=== PATIENT | male | born 1940 | race Caucasian/White ===

== ENCOUNTER 2018-10-11 16:43 | Emergency (ER) | payer MEDICARE, BC ==
[~2018-10-11] VITALS: Ht 170.2 cm; Wt 68.0 kg
[~2018-10-11 16:43] MED LIST: AMLO-147 PO; ASPI325T29 PO; CINA30TA4 PO; NEPH PO; NITR0.4T39 SL; OMEP40CA6 PO; SEVE800T7 PO
[2018-10-11 17:42] VITALS: Ht 170.2 cm; Wt 68.0 kg
--- NOTE | 2018-10-11 18:48 | ERD ---
ER Documentation Chief Complaint Chief Complaint abdominal pain HPI The patient is a 78-year-old male, presenting to the ER because of vague and diffuse abdominal pain intermittently for the last 10 days after eating, complains of diarrhea for the last 3 days, denies hematemesis, hematochezia. He also complains of right facial pain for the last couple days, denies fever, chills, neck pain, chest pain. He does not smoke nor drink Past medical history: Chronic kidney disease, hypertension, aortic stenosis, CAD, pancytopenia ROS All systems reviewed and are negative except as per history of present illness. Medications Home Meds Active Scripts Azithromycin* (Zithromax*) 250 Mg Tablet, 250 MG PO .ZPACK DIRECTED, #6 TAB TAKE 500 MG (2 TABS) THE FIRST DAY THEN 250 MG (1 TAB) DAYS 2-5 Prov:MACRINA CONNER MD 10/11/18 Loperamide Hcl* (Imodium*) 2 Mg Capsule, 2 MG PO .AFTER EA LOOSE BM PRN for DIARRHEA, #10 TAB Prov:MACRINA CONNER MD 10/11/18 Pantoprazole* (Protonix*) 40 Mg Tablet., 40 MG PO DAILY, #10 TAB Prov:MACRINA CONNER MD 10/11/18 Reported Medications Sevelamer Carbonate* (Renvela*) 800 Mg Tablet, 3200 GM PO WITH MEALS, TAB 10/11/18 Amlodipine Besylate* (Amlodipine Besylate*) 10 Mg Tablet, 10 MG PO DAILY, #30 TAB PATIENT TAKE- NEEDED 10/11/18 Discontinued Reported Medications Multivit/Ca Carb/B Cmplx/Fa* (Marielle-Tony*) 1 Tab Tab, 1 TAB PO DAILY, TAB 04/11/16 Sevelamer Carbonate* (Renvela*) 800 Mg Tablet, 0.8 GM PO WITH MEALS, TAB 04/11/16 Cinacalcet* (Sensipar*) 30 Mg Tab, 30 MG PO DAILY, TAB 04/11/16 Omeprazole* (Omeprazole*) 40 Mg Capsule.dr, 40 MG PO DAILY, #30 CAP 04/11/16 Amlodipine Besylate* (Amlodipine Besylate*) 10 Mg Tablet, 10 MG PO DAILY, #30 TAB 04/11/16 Discontinued Scripts Nitroglycerin* (Nitrostat*) 0.4 Mg Tab.subl, 1 TAB SL Q5M PRN for CHEST PAIN for 15 Days, #60 Prov:BRIANA VOGEL MD 04/15/16 Aspirin (Aspirin Lite-Coat) 325 Mg Tablet, 325 MG PO DAILY for 90 Days, #90 TAB Prov:BRIANA VOGEL MD 04/15/16 Allergies Allergies: Coded Allergies: Penicillins (Verified Allergy, Unknown, 10/11/18) PMhx/Soc History of Surgery: Yes (AVS 10YRS AGO) Anesthesia Reaction: No Hx Neurological Disorder: No Hx Respiratory Disorders: No Hx Cardiac Disorders: Yes (HIGH BP AND LA X3) Hx Psychiatric Problems: No Hx Miscellaneous Medical Probl: No Hx Alcohol Use: Yes Hx Substance Use: No Hx Tobacco Use: Yes Physical Exam Vitals Vital Signs Date Temp Pulse Resp B/P (MAP) Pulse Ox O2 O2 Flow FiO2 Time Delivery Rate 10/11/18 76 17 117/63 100 Room Air 21:47 (81) 10/11/18 97.8 89 18 129/59 97 17:42 (82) Physical Exam Const: No acute distress. Head: Atraumatic. Eyes: Normal Conjunctiva. ENT: Normal External Ears, Nose and Mouth. Right maxillary sinus tenderness Neck: Full range of motion. No meningismus. Resp: Clear to auscultation bilaterally. Cardio: Regular rate and rhythm. Abd: Soft, non distended, normal bowel sounds, non tender. Skin: No petechiae or rashes. Back: No midline or flank tenderness. Ext: No cyanosis, or edema. Neur: Awake and alert. No focal deficit Psych: Normal Mood and Affect. Result Diagram: 10/11/18190710/11/181907 Results 24 hrs Laboratory Tests Test 10/11/18 19:08 White Blood Count 4.7 10^3/ul Red Blood Count 3.51 10^6/ul Hemoglobin 10.8 g/dl Hematocrit 33.9 % Mean Corpuscular Volume 96.6 fl Mean Corpuscular Hemoglobin 30.8 pg Mean Corpuscular Hemoglobin Concent 31.9 g/dl Red Cell Distribution Width 16.5 % Platelet Count 129 10^3/UL Mean Platelet Volume 10.0 fl Immature Granulocytes % 0.400 % Neutrophils % 76.2 % Lymphocytes % 8.9 % Monocytes % 11.8 % Eosinophils % 2.3 % Basophils % 0.4 % Nucleated Red Blood Cells % 0.0 /100WBC Immature Granulocytes # 0.020 10^3/ul Neutrophils # 3.6 10^3/ul Lymphocytes # 0.4 10^3/ul Monocytes # 0.6 10^3/ul Eosinophils # 0.1 10^3/ul Basophils # 0.0 10^3/ul Nucleated Red Blood Cells # 0.0 10^3/ul Sodium Level 137 mmol/L Potassium Level 4.6 mmol/L Chloride Level 92 mmol/L Carbon Dioxide Level 27 mmol/L Anion Gap 18 Blood Urea Nitrogen 69 mg/dl Creatinine 9.97 mg/dl Est Glomerular Filtrat Rate mL/min mL/min Glucose Level 80 mg/dl Calcium Level 7.9 mg/dl Total Bilirubin 0.0 mg/dl Direct Bilirubin 0.00 mg/dl Indirect Bilirubin 0.0 mg/dl Aspartate Amino Transf (AST/SGOT) 21 IU/L Alanine Aminotransferase (ALT/SGPT) 20 IU/L Alkaline Phosphatase 130 IU/L Total Protein 6.6 g/dl Albumin 3.6 g/dl Globulin 3.00 g/dl Albumin/Globulin Ratio 1.20 Lipase 41 U/L Procedures/MDM MEDICAL MAKING DECISION: The patient is a 78-year-old male, presenting with acute abdominal pain, acute sinusitis, was treated with Protonix 40 mg IV for pain good response, is stable for outpatient follow-up The differential diagnoses considered include but are not limited to cholelithiasis, cholecystitis, choledocholithiasis, cholangitis, pancreatitis, hepatitis, gastritis, peptic ulcer disease, gastric ulcer, appendicitis, cystitis, diverticulitis, partial small bowel obstruction. Departure Diagnosis: Primary Impression: Abdominal pain Additional Impressions: Sinusitis Diarrhea Condition: Good Comments He was discharged with Zithromax, Protonix, Imodium I discussed the findings with the patient. I advised the patient to follow-up with the primary physician in about 2-3 days for re-eval and referral to GI, sooner if needed and return if any concern. Disclaimer: Inadvertent spelling and grammatical errors are likely due to EHR/dictation software use and do not reflect on the overall quality of patient care. Also, please note that the electronic time recorded on this note does not necessarily reflect the actual time of the patient encounter. MACRINA CONNER MD October 11, 2018 18:48
[2018-10-11] MEDS ORDERED: AMLO-147 PO (19:13)
[2018-10-11] MEDS ORDERED: SEVE800T7 PO (19:15)
[2018-10-11] MEDS ORDERED: AZIT250T PO (21:08)
[2018-10-11] MEDS ORDERED: LOPE2CAP PO (21:08)
[2018-10-11] MEDS ORDERED: PANT40TA3 PO (21:08)
[2018-10-11 21:47] VITALS: BP 117/63; PULSE 76; RESP 17
== END 2018-10-11 21:48 | disposition home or self-care (01) ==
LOC: E/R 16:43
DX: R10.9 Unspecified abdominal pain (principal); J32.9 Chronic sinusitis, unspecified; R19.7 Diarrhea, unspecified; I25.10 Atherosclerotic heart disease of native coronary artery without angina pectoris; I12.9 Hypertensive chronic kidney disease with stage 1 through stage 4 chronic kidney disease, or unspecified chronic kidney disease; N18.9 Chronic kidney disease, unspecified; Z87.891 Personal history of nicotine dependence; Z79.82 Long term (current) use of aspirin
CPT/HCPCS: 36415; 80053; 83690; 85025; 99283